=== PATIENT | female | born 1985 ===

== ENCOUNTER 2021-03-12 14:06 | Outpatient (CLI) | payer MEDICAID ==
--- NOTE | 2021-03-12 15:33 | Mammography Report ---
BILATERAL DIGITAL DIAGNOSTIC MAMMOGRAM WITH CAD , 03/12/2021 RIGHT LIMITED BREAST ULTRASOUND CLINICAL INFORMATION / INDICATION: FAM HX OF BREAST CA/RT AXILLARY LUMP TECHNIQUE: Digital bilateral mammographic imaging was performed. Limited ultrasound was performed. Th is examination was interpreted with the benefit of Computer-Aided Detection (CAD) analysis. COMPARISON: None available. FINDINGS: Breast Density: The breasts are almost entirely fatty. MAMMOGRAPHIC FINDINGS: No dominant mass, suspicious calcifications, or architectural distortion in ei ther breast. No mammographic abnormality to account for the palpable lump in the right axilla. ULTRASOUND FINDINGS: Targeted ultrasound evaluation was performed of the area of interest. Sonograp hic evaluation of the right axilla demonstrates an oval hypoechoic mass within the dermis correspondi ng to the patient's palpable lump. This mass measures 1.4 x 0.9 x 0.5 cm. This is a benign finding mo st likely representing benign skin lesion. IMPRESSION: No mammographic or sonographic evidence of malignancy. There is a benign 1.4 cm oval mass within the skin of the right axilla that is accounting for the palpable lump. Please correlate clini kim as to whether dermatology or surgical consultation is needed. Follow up recommendation: Unless otherwise clinically indicated, recommend patient return to routine screening mammography at age 40. BI-RADS Category 2: Benign. A "normal" or negative report should not discourage follow up or biopsy of a clinically significant f inding. A written summary of these findings will be mailed to the patient. The patient will be entered into a mammography reporting system which will generate a reminder letter for the patient's next appointmen t at the appropriate interval. According to the [employer], yearly mammograms are recommended starting at age 40 and continuing as long as a woman is in good health. Breast MRI is recommended for women with an buster roximately 20-25% or greater lifetime risk of breast cancer, including women with a strong family his tory of breast or ovarian cancer and women who have been treated for Hodgkin's disease. Signer Name: Ruthy Porter MD Signed: 03/12/2021 3:29 PM Workstation Name: [id number]
== END 2021-03-12 14:07 | disposition home or self-care (01) ==
LOC: SPVWC 14:06
PROVIDERS: ATTEND Obstetrics & Gynecology
DX: N63.31 Unspecified lump in axillary tail of the right breast (principal); R59.0 Localized enlarged lymph nodes; Z80.3 Family history of malignant neoplasm of breast
CPT/HCPCS: 77066